=== PATIENT | female | born 1955 | race Caucasian/White ===

== ENCOUNTER 2017-06-05 10:52 | Outpatient (CLI) | payer MEDICAID ==
[2017-06-05 17:51] LABS: BUN - BLOOD UREA NITROGEN 17 mg/dL (6-20); CALCIUM 9.5 mg/dL (8.5-10.3); CARBON DIOXIDE - CO2 26 mmol/L (21-32); CHLORIDE 105 mmol/L (101-111); CHOL/HDL RATIO 4.6 (<4.4); CHOLESTEROL 232 mg/dL; CREATININE 0.6 mg/dL (0.4-1.0); GFR - MDRD 102 (>89); GLUCOSE 87 mg/dL (70-100); HDL CHOLESTEROL 50 mg/dL; LDL/HDL RATIO 3.2 (<4.4); POTASSIUM 4.1 mmol/L (3.5-5.0); SODIUM 139 mmol/L (135-145); TRIGLYCERIDES 103 mg/dL; VLDL CHOLESTEROL 21 mg/dL
== END 2017-06-05 10:53 | disposition home or self-care (01) ==
LOC: LAB.F 10:52
PROVIDERS: ATTEND Internal Medicine
DX: E78.01 Familial hypercholesterolemia (principal); E87.6 Hypokalemia; E55.9 Vitamin D deficiency, unspecified
CPT/HCPCS: 36415; 80048; 80061; 82306

== ENCOUNTER 2017-06-18 11:10 | Outpatient (CLI) | payer MEDICAID | END 2017-06-18 11:11 | disposition home or self-care (01) | LOC: SC 11:10 | PROVIDERS: ATTEND Internal Medicine Pulmonary Disease | DX: G47.33 Obstructive sleep apnea (adult) (pediatric) (principal) | CPT/HCPCS: 99203; 99212 ==

== ENCOUNTER 2020-04-13 11:26 | Outpatient (CLI) | payer MEDICAID ==
[2020-04-13 15:25] LABS: BASOPHILS # (AUTO) 0.1 10^3/uL (0.0-0.1); BASOPHILS % (AUTO) 0.8 %; EOSINOPHILS # (AUTO) 0.1 10^3/uL (0.0-0.7); EOSINOPHILS % (AUTO) 1.8 %; HGB - HEMOGLOBIN 13.5 g/dL (12.0-16.0); LYMPHOCYTES # (AUTO) 1.9 10^3/uL (1.5-3.5); LYMPHOCYTES % (AUTO) 30.9 %; MEAN CORPUSCULAR HEMOGLOBIN 30.9 pg (27.0-31.0); MEAN CORPUSCULAR HGB CONC 32.5 g/dL (32.0-36.0); MEAN CORPUSCULAR VOLUME 95.2 fL (81.0-99.0); MEAN PLATELET VOLUME 11.5 fL (7.9-10.8); MONOCYTES # (AUTO) 0.6 10^3/uL (0.0-1.0); MONOCYTES % (AUTO) 9.2 %; NEUTROPHILS # (AUTO) 3.5 10^3/uL (1.5-6.6); NEUTROPHILS % (AUTO) 57.1 %; PLT - PLATELET COUNT 271 10^3/uL (130-450); RED BLOOD COUNT 4.37 10^6/uL (4.20-5.40); RED CELL DISTRIBUTION WIDTH 13.1 % (12.0-15.0); WHITE BLOOD COUNT 6.1 x10^3/uL (4.8-10.8)
[2020-04-13 15:42] LABS: ALBUMIN 4.3 g/dL (3.2-5.5); ALBUMIN/GLOBULIN RATIO 1.5 (1.0-2.2); ALKALINE PHOSPHATASE 63 IU/L (42-121); ALT ALANINE AMINOTRANSFERASE 24 IU/L (10-60); AST ASPARTATE AMINOTRANSFERASE 22 IU/L (10-42); BILIRUBIN,TOTAL 0.8 mg/dL (0.2-1.0); BUN - BLOOD UREA NITROGEN 14 mg/dL (6-20); CALCIUM 9.3 mg/dL (8.5-10.3); CARBON DIOXIDE - CO2 27 mmol/L (21-32); CHLORIDE 103 mmol/L (101-111); CHOL/HDL RATIO 5.9 (<4.4); CHOLESTEROL 303 mg/dL; CREATININE 0.8 mg/dL (0.4-1.0); GLUCOSE 101 mg/dL (70-100); HDL CHOLESTEROL 51 mg/dL; LDL CHOLESTEROL,CALCULATED 223 mg/dL; LDL/HDL RATIO 4.4 (<4.4); SODIUM 137 mmol/L (135-145); TOTAL PROTEIN 7.1 g/dL (6.7-8.2); VLDL CHOLESTEROL 29 mg/dL
== END 2020-04-13 11:27 | disposition home or self-care (01) ==
LOC: LAB.S 11:26
PROVIDERS: ATTEND Family Medicine
DX: E78.5 Hyperlipidemia, unspecified (principal); G43.909 Migraine, unspecified, not intractable, without status migrainosus; E55.9 Vitamin D deficiency, unspecified
CPT/HCPCS: 36415; 80053; 80061; 82306; 83721; 85025

== ENCOUNTER 2023-01-04 10:34 | Outpatient (CLI) | payer MEDICARE, MEDICAID ==
[2023-01-04 14:59] LABS: BASOPHILS # (AUTO) 0.1 10^3/uL (0.0-0.1); BASOPHILS % (AUTO) 1.1 %; EOSINOPHILS # (AUTO) 0.1 10^3/uL (0.0-0.7); EOSINOPHILS % (AUTO) 1.1 %; HCT - HEMATOCRIT 39.7 % (37.0-47.0); HGB - HEMOGLOBIN 12.9 g/dL (12.0-16.0); LYMPHOCYTES # (AUTO) 1.7 10^3/uL (1.5-3.5); LYMPHOCYTES % (AUTO) 36.3 %; MEAN CORPUSCULAR HGB CONC 32.5 g/dL (32.0-36.0); MEAN CORPUSCULAR VOLUME 95.4 fL (81.0-99.0); MEAN PLATELET VOLUME 11.3 fL (7.9-10.8); MONOCYTES # (AUTO) 0.5 10^3/uL (0.0-1.0); MONOCYTES % (AUTO) 9.8 %; NEUTROPHILS # (AUTO) 2.4 10^3/uL (1.5-6.6); NEUTROPHILS % (AUTO) 51.5 %; PLT - PLATELET COUNT 262 10^3/uL (130-450); RED BLOOD COUNT 4.16 10^6/uL (4.20-5.40); RED CELL DISTRIBUTION WIDTH 12.4 % (12.0-15.0); WHITE BLOOD COUNT 4.6 x10^3/uL (4.8-10.8)
[2023-01-04 15:41] LABS: THYROID STIMULATING HORMONE 0.88 uIU/mL (0.34-5.60)
[2023-01-04 16:08] LABS: ALBUMIN 4.1 g/dL (3.2-5.5); ALBUMIN/GLOBULIN RATIO 1.6 (1.0-2.2); BILIRUBIN,TOTAL 0.6 mg/dL (0.2-1.0); CALCIUM 9.2 mg/dL (8.5-10.3); CREATININE 0.6 mg/dL (0.4-1.0); POTASSIUM 4.2 mmol/L (3.5-5.0); TOTAL PROTEIN 6.6 g/dL (6.7-8.2)
[2023-01-04 16:12] LABS: CHOL/HDL RATIO 3.9 (<4.4); CHOLESTEROL 235 mg/dL; HDL CHOLESTEROL 61 mg/dL; LDL CHOLESTEROL,CALCULATED 163 mg/dL; LDL/HDL RATIO 2.7 (<4.4); TRIGLYCERIDES 55 mg/dL; VLDL CHOLESTEROL 11 mg/dL
== END 2023-01-04 10:35 | disposition home or self-care (01) ==
LOC: LAB.S 10:34
PROVIDERS: ATTEND Registered Nurse
DX: E78.5 Hyperlipidemia, unspecified (principal); Z13.9 Encounter for screening, unspecified; E55.9 Vitamin D deficiency, unspecified
CPT/HCPCS: 36415; 80053; 80061; 82306; 83721; 84443; 85025

== ENCOUNTER 2023-03-02 18:36 | Emergency (ER) | payer MEDICARE, MEDICAID ==
[2023-03-02 18:43] VITALS: BP 148/73
--- NOTE | 2023-03-02 19:00 | ED Physician Documentation ---
History of Present Illness - Stated complaint Stated Complaint: R ARM INJ - Chief complaint Chief Complaint: Trauma Ext - History obtained from History obtained from: Patient - History of Present Illness Timing: Today Pain level max: 5 Pain level now: 5 - Additonal information Additional information: 67-year-old female was walking on a trail earlier today when she tripped and fell injuring her right wrist. She does not believe she struck her head. No headache. No loss of consciousness. No neck or back pain. Not on blood thinners. Worse with movement, better with rest. No numbness or tingling. No deformity. This occurred several hours prior to arrival. Patient is right- handed. 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 - Present Medications Home Medications: Ambulatory Orders Medication Instructions Recorded Confirmed SUMAtriptan succinate [Sumatriptan 100 mg PO DAILY PRN 07/01/14 03/02/23 Succinate] HYDROcod/ACETAM 5/325 [Lolita 5/325] 1 - 2 ea PO Q6H PRN #10 tablet 03/02/23 - Allergies Allergies/Adverse Reactions: Allergies Allergy/AdvReac Type Severity Reaction Status Date / Time No Known Drug Allergies Allergy Verified 03/02/23 18:43 PD ED PE NORMAL - Vitals Vital signs reviewed: Yes - General General: Alert and oriented X 3, No acute distress - HEENT HEENT: Atraumatic, PERRL, EOMI, Moist mucous membranes - Neck Neck: Supple, no meningeal sign, No bony TTP - Cardiac Cardiac: RRR, Strong equal pulses - Respiratory Respiratory: No respiratory distress, Clear bilaterally - Back Back: No spinal TTP - Derm Derm: Warm and dry - Extremities Extremities: Other (R UE - R wrist - TTP over the distal radius. no swelling. no deformity. Neurovascular intact. Otherwise normal examination of the entire right arm. No snuffbox tenderness.) - Neuro Neuro: Alert and oriented X 3 - Psych Psych: Normal mood, Normal affect Results - Vitals Vitals: Vital Signs - 24 hr 03/02/23 18:39 Temperature 37.0 C Heart Rate 75 Respiratory 15 Rate Blood Pressure 148/73 H O2 Saturation 98 Oxygen O2 Source Room air - Rads (name of study) R wrist xray Relevant Findings:: Final report received, See rad report PD Medical Decision Making - ED course Complexity details: reviewed results, re-evaluated patient, considered differential, d/w patient, d/w family ED course: 67-year-old female status post ground-level fall injuring the right wrist. No acute findings on x-ray. Placed in a Velcro splint for comfort. Neurovascular intact. No other acute injuries. Recommend she follow-up with her PCP in 1 week for recheck, if still having pain would consider repeat x-rays for potential occult fracture. We will prescribe pain medication for home as well. Patient counseled regarding signs and symptoms for which I believe and urgent re-evaluation would be necessary. Patient with good understanding of and agreement to plan and is comfortable going home at this time This document was made in part using voice recognition software. While efforts are made to proofread this document, sound alike and grammatical errors may occur. Departure - Departure Disposition: Home, Self Care Clinical Impression: Right wrist sprain Qualifiers: Encounter type: initial encounter Qualified Code(s): S63.501A - Unspecified sprain of right wrist, initial encounter Condition: Good Instructions: ED Sprain Wrist Follow-Up: Yamileth Hernandez ARNP [Primary Care Provider] - Within 1 week Prescriptions: HYDROcod/ACETAM 5/325 [Lolita 5/325] 1 - 2 ea PO Q6H PRN #10 tablet PRN Reason: Pain Comments: There are no fractures on your x-ray today. You were placed in a Velcro splint for comfort. You can use this as needed. I would recommend sleeping in the brace as this will help to limit movement. You will likely want to wear the brace for at least the next 2 days. If you are still having pain in 1 week, you should follow-up with your doctor for repeat x-rays. Your prescriptions were sent to [facility] in [place]. Please return if you worsen I am prescribing a short course of narcotic pain medication for you. These are potentially dangerous and addictive medications that should be used carefully. These medications may constipate you. Take an dbwb-wyq-timiysq stool softener (docusate) twice daily with plenty of water while taking these medications. If you go 24 hours without a bowel movement, take sums-jql-wjzkssi miralax, per package instructions. Do not drink or drive while taking these medications. If you received narcotic or sedating medications while in the emergency department, do not drive for 24 hours. Store this medication in a safe, secure place and out of reach of children. It is a violation of federal law to give or sell this medication to another person or to use in a manner other than prescribed. The ED will not refill narcotic prescriptions, including prescriptions lost or stolen. To dispose of unwanted medications: 1. [facility] at [address] in [place] has a medication drop box. They accept prescription medications (in pill form) Saturday through Saturday 9:00 a.m. to 5:00 p.m. 2. The [facility] [employer] accepts prescription medications (in pill form only) for disposal year round. Call for more information. 3. Contact the [facility] for the next [facility] sponsored prescription drug collection event. , [phone], or [phone]; Forms: PCP List Discharge Date/Time: 03/02/23 20:04
--- NOTE | 2023-03-02 19:35 | XRAY Report ---
PROCEDURE: Wrist 4 View RT INDICATIONS: fall, wrist pain TECHNIQUE: 4 views of the wrist were acquired. COMPARISON: None. FINDINGS: Bones: No acute fractures or dislocations. No suspicious bony lesions. Generalized osteopenia. No s caphoid fracture is seen on navicular view. Soft tissues: No suspicious soft tissue calcifications or masses. IMPRESSION: No acute osseous abnormality. If there is clinical concern or persistent symptoms, additional imaging such as repeat radiographs or advanced imaging (e.g. CT, MRI) may be helpful for further evaluation. Reviewed by: Jeovanny Khan MD on 03/02/2023 7:34 PM PDT Approved by: Jeovanny Khan MD on 03/02/2023 7:34 PM PDT Station ID: [id number]
[2023-03-02] MEDS ORDERED: HYDROcod/ACETAM 5/325 MG TABLET PO STA (19:45)
== END 2023-03-02 20:04 | disposition home or self-care (01) ==
LOC: ED 18:36
DX: S63.501A Unspecified sprain of right wrist, initial encounter (principal); W01.0XXA Fall on same level from slipping, tripping and stumbling without subsequent striking against object, initial encounter; Y93.01 Activity, walking, marching and hiking; Y92.89 Other specified places as the place of occurrence of the external cause
CPT/HCPCS: 73110; 99283; A9270

== ENCOUNTER 2023-03-11 08:00 | Outpatient (CLI) | payer MEDICARE, MEDICAID ==
--- NOTE | 2023-03-12 14:18 | XRAY Report ---
PROCEDURE: Wrist 4 View RT INDICATIONS: SPRAIN OF RIGHT WRIST TECHNIQUE: 4 views of the wrist were acquired. COMPARISON: Right wrist radiographs 03/02/2023 FINDINGS: Bones: Cortical angulation present at the distal radial metaphysis with possible periosteal reaction for example on the oblique view. Soft tissues: No suspicious soft tissue calcifications . Possible anterior bowing pronator fat pad. IMPRESSION: Possible healing minimally displaced distal radius fracture. If clinically indicated, follow-up radio graphs and/or CT or MRI may be helpful for further evaluation. Reviewed by: Jeovanny Lopez MD on 03/12/2023 2:17 PM PDT Approved by: Jeovanny Lopez MD on 03/12/2023 2:17 PM PDT Station ID: [id number]
== END 2023-03-11 23:59 | disposition home or self-care (01) ==
LOC: DI.S 08:00
PROVIDERS: ATTEND Physician Assistant Medical
DX: S63.8X1D Sprain of other part of right wrist and hand, subsequent encounter (principal)

== ENCOUNTER 2023-04-18 08:00 | Outpatient (CLI) | payer MEDICARE ==
--- NOTE | 2023-04-18 11:55 | XRAY Report ---
PROCEDURE: Wrist 3 View RT INDICATIONS: RIGHT WRIST FRACTURE TECHNIQUE: 3 views of the wrist were acquired. COMPARISON: 03/11/2023 FINDINGS: Bones: Increasing linear sclerosis across the distal radial metaphysis reflects additional healing. Radiocarpal joint space narrowing Soft tissues: No suspicious soft tissue calcifications or masses. IMPRESSION: Healing distal radial fracture Reviewed by: Shadi Khalil MD on 04/18/2023 10:54 AM JENNI Approved by: Shadi Khalil MD on 04/18/2023 10:54 AM AKMIKEL Station ID: [id number]
== END 2023-04-18 23:59 | disposition home or self-care (01) ==
LOC: DI.WOS 08:00
PROVIDERS: ATTEND Physician Assistant Surgical
DX: S52.501D Unspecified fracture of the lower end of right radius, subsequent encounter for closed fracture with routine healing (principal)

== ENCOUNTER 2023-09-23 14:24 | Outpatient (CLI) | payer MEDICARE, BC ==
[2023-09-23 19:58] LABS: ALBUMIN 4.5 g/dL (3.2-5.5); BILIRUBIN,TOTAL 0.5 mg/dL (0.2-1.0); CALCIUM 9.7 mg/dL (8.5-10.3); CREATININE 0.7 mg/dL (0.6-1.3); POTASSIUM 4.1 mmol/L (3.5-4.5); TOTAL PROTEIN 6.8 g/dL (6.4-8.9)
[2023-09-23 20:09] LABS: THYROID STIMULATING HORMONE 1.5 uIU/mL (0.34-5.60)
== END 2023-09-23 14:25 | disposition home or self-care (01) ==
LOC: LAB.S 14:24
PROVIDERS: ATTEND Registered Nurse
DX: R53.83 Other fatigue (principal); R41.89 Other symptoms and signs involving cognitive functions and awareness; R63.5 Abnormal weight gain; R63.2 Polyphagia; R22.1 Localized swelling, mass and lump, neck
CPT/HCPCS: 36415; 80053; 84439; 84443; 84481; 85025; 86800

== ENCOUNTER 2023-09-30 13:12 | Outpatient (CLI) | payer MEDICARE, BC ==
[2023-09-30 20:04] LABS: BASOPHILS # (AUTO) 0.1 10^3/uL (0.0-0.1); BASOPHILS % (AUTO) 0.9 %; EOSINOPHILS # (AUTO) 0.1 10^3/uL (0.0-0.7); EOSINOPHILS % (AUTO) 0.8 %; HCT - HEMATOCRIT 41.1 % (37.0-47.0); HGB - HEMOGLOBIN 13.2 g/dL (12.0-16.0); LYMPHOCYTES # (AUTO) 1.8 10^3/uL (1.5-3.5); LYMPHOCYTES % (AUTO) 27.1 %; MEAN CORPUSCULAR HEMOGLOBIN 30.7 pg (27.0-31.0); MEAN CORPUSCULAR HGB CONC 32.1 g/dL (32.0-36.0); MEAN CORPUSCULAR VOLUME 95.6 fL (81.0-99.0); MEAN PLATELET VOLUME 10.9 fL (7.9-10.8); MONOCYTES # (AUTO) 0.5 10^3/uL (0.0-1.0); MONOCYTES % (AUTO) 8.2 %; NEUTROPHILS # (AUTO) 4.1 10^3/uL (1.5-6.6); NEUTROPHILS % (AUTO) 62.8 %; PLT - PLATELET COUNT 276 10^3/uL (130-450); RED CELL DISTRIBUTION WIDTH 12.7 % (12.0-15.0); WHITE BLOOD COUNT 6.6 x10^3/uL (4.8-10.8)
== END 2023-09-30 13:13 | disposition home or self-care (01) ==
LOC: LAB.S 13:12
PROVIDERS: ATTEND Registered Nurse
DX: R41.89 Other symptoms and signs involving cognitive functions and awareness (principal); R63.5 Abnormal weight gain; R63.2 Polyphagia; R22.1 Localized swelling, mass and lump, neck; R53.83 Other fatigue
CPT/HCPCS: 36415; 85025; 86800

== ENCOUNTER 2023-10-04 14:40 | Outpatient (CLI) | payer MEDICARE, BC ==
--- NOTE | 2023-10-04 16:38 | Ultrasound Report ---
PROCEDURE: Soft Tissue Head or Neck INDICATIONS: SWELLING IN NECK TECHNIQUE: Real-time scanning was performed of the thyroid gland, with image documentation. COMPARISON: None FINDINGS: Right: Thyroid lobe measures 4.8 x 1.5 x 1.9 cm, and is homogeneous in echotexture. Left: Thyroid lobe measures 4.4 x 1.1 x 1.3 cm, and is homogenous in echotexture. Isthmus: 0.11 cm thick. Nodule number: One Location: Right, mid Size: 2.5 x 1.6 x 1.8 cm. Composition: Solid. Echogenicity: Isoechoic. Shape: wider than tall (0 points). Margins: Smooth (0 points). Echogenic foci: None (0 points). Total points: 3 ACR TI-RADS category: 3 Nodule number: Two Location: Left thyroid, mid Size: Size cm. Composition: 0.5 x 0.3 x 0.4 cm. Echogenicity: Predominantly solid. Shape: wider than tall (0 points). Margins: Smooth (0 points). Echogenic foci: None (0 points). Total points: 2 ACR TI-RADS category: 2 IMPRESSION: Thyroid nodules as noted above. Recommend follow-up ultrasound in one year ACR TI-RADS definitions and recommendations: TI-RADS 1 (benign): 0 points. FNA not needed. TI-RADS 2 (not suspicious): 2 points. FNA not needed. TI-RADS 3 (mildly suspicious): 3 points. "FNA if 2.5 cm or larger, follow up if 1.5 cm or larger (at 1, 3, and 5 years). TI-RADS 4 (moderately suspicious): 4-6 points. "FNA if 1.5 cm or larger, follow up if 1 cm or larger (at 1, 2, 3, and 5 years). TI-RADS 5 (highly suspicious): 7 points or more. "FNA if 1 cm or larger, follow up if 0.5 cm or larger (every year for 5 years). Reviewed by: Preet Schwartz MD on 10/04/2023 4:37 PM PST Approved by: Preet Schwartz MD on 10/04/2023 4:37 PM PST Station ID: [id number]
== END 2023-10-04 14:41 | disposition home or self-care (01) ==
LOC: DI 14:40
PROVIDERS: ATTEND Registered Nurse
DX: E04.2 Nontoxic multinodular goiter (principal)

== ENCOUNTER 2023-12-03 12:40 | Outpatient (CLI) | payer MEDICARE, BC ==
[~2023-12-03 12:40] MED LIST: LIDOCAINE-MPF 1% 5 ML VIAL ONE
[2023-12-03] MEDS: LIDOCAINE-MPF 1% 5 ML VIAL TD ONE (14:08)
--- NOTE | 2023-12-04 12:59 | Ultrasound Report ---
PROCEDURE: FNA Bx w/US Gdn 1st Les INDICATIONS: THYROID NODULE TECHNIQUE: The indications, alternatives, benefits, risks, and complications of the procedure were explained to the patient. Written informed consent was obtained and placed in the chart. The area of interest wa s examined sonographically and a site was chosen for ultrasound guided percutaneous sampling. The sk in was prepared and draped in the usual fashion, and anesthetized with 1% lidocaine infiltrated from the skin down to the lesion. Multiple passes were then performed, with contents emptied into an appr [facility] pathology specimen container. A bandage was applied to the area of access at completion of t he study. COMPARISON: 10/04/2023 FINDINGS: Location(s) of lesion(s) sampled: Right thyroid [place]: 25 gauge hypodermic needles. Number of passes: 6 Medications: 1% lidocaine for local anaesthesia. Complications: None. IMPRESSION: Successful ultrasound-guided right thyroid nodule fine needle aspiration, with cytology results pendi ng. Reviewed by: Dusty Wynne MD on 12/04/2023 12:58 PM PDT Approved by: Dusty Wynne MD on 12/04/2023 12:58 PM PDT Station ID: [id number]
== END 2023-12-03 12:41 | disposition home or self-care (01) ==
LOC: DI 12:40
PROVIDERS: ATTEND Registered Nurse
DX: E04.1 Nontoxic single thyroid nodule (principal)
CPT/HCPCS: 10005

== ENCOUNTER 2024-01-16 15:05 | Outpatient (CLI) | payer MEDICARE, BC ==
--- NOTE | 2024-01-16 18:42 | DEXA Report ---
PROCEDURE: Dexa Spine and/or Hip INDICATIONS: POST MENOPAUSAL TECHNIQUE: Dual energy x-ray absorptiometry (DXA) was performed on a [employer] System. Regions measur ed are the AP Spine, femoral neck, and if needed forearm. COMPARISON: 6 03/25/2014 FINDINGS: Lumbar Spine: Bone Mineral Density: 1.091 g/cm/cm,T score: -0.7, unchanged. Left Femoral Neck: Bone Mineral Density: 0.697 g/cm/cm, T score: -2.5 compared to -2.1. Left Hip: Bone Mineral Density: 0.762 g/cm/cm,T score: -2.0, compared to -1.7. (T score greater or equal to -1.0: NORMAL) (T score from -1.1 to -2.4: OSTEOPENIA) (T score less than or equal to -2.5 to: OSTEOPOROSIS) Impression: By WHO criteria, this patient has osteoporosis in the left femoral neck demonstrating continued bone mineral density loss compared to prior exam. There is moderate osteopenia worse in the left hip alyse red to prior exam. Patients with diagnosis of osteoporosis or osteopenia should have regular bone mineral density assess ment. For those eligible for Medicare, routine testing is allowed once every 2 years. Testing frequ ency can be increased for patients who have rapidly progressing disease or for those who are receivin g medical therapy to restore bone mass. Reviewed by: Kylah Wilks MD on 01/16/2024 6:41 PM PDT Approved by: Kylah Wilks MD on 01/16/2024 6:41 PM PDT Station ID: [id number]
== END 2024-01-16 15:06 | disposition home or self-care (01) ==
LOC: DI 15:05
PROVIDERS: ATTEND Registered Nurse
DX: M81.0 Age-related osteoporosis without current pathological fracture (principal); Z78.0 Asymptomatic menopausal state

== ENCOUNTER 2024-02-03 13:02 | Outpatient (CLI) | payer MEDICARE, BC ==
--- NOTE | 2024-02-04 08:42 | Mammography Report ---
BILATERAL DIGITAL SCREENING MAMMOGRAM 3D/2D: 02/03/2024 CLINICAL: Routine screening. Comparison is made to exams dated: 03/25/2014 mammogram, 03/26/2013 mammogram, and 02/15/2012 mammogram - [facility]. Both breasts are heterogeneously dense, which may obscure small masses (category c / 51-75% glandular tissue). No significant masses, calcifications, or other findings are seen in either breast. There has been no significant interval change. IMPRESSION: NEGATIVE There is no mammographic evidence of malignancy. A 1 year screening mammogram is recommended. Based on the Tyrer Cuzick model (a risk assessment model) the patient's lifetime risk is 9.3% and her 10 year risk is 4.9%. According to the ACR, ACS, and NCCN guidelines, an annual breast MRI exam daquan g with mammogram is recommended if the patient's lifetime risk is 20% or greater. This exam was interpreted at Station ID: [id number]. NOTE: For mammograms, a report in lay terms will be sent to the patient. Approximately 15% of breast malignancies will not be visualized mammographically. In the management of a palpable breast mass, a negative mammogram must not discourage biopsy of a clinically suspicious lesion. Electronically Signed By: Dusty hebert/khari:02/03/2024 13:39:18 letter sent: No_Letter ACR BI-RADS Category 1: Negative 3341F PARENCHYMAL PATTERN: (D) - The breast(s) demonstrate(s) heterogeneously dense fibroglandular ruben galvan. BI-RADS CATEGORY: (1) - 1 RECOMMENDATION: (ANNUAL) - Recommend routine annual screening mammography. [id number] 1 year screening LATERALITY: (B)
== END 2024-02-03 13:03 | disposition home or self-care (01) ==
LOC: DI.S 13:02
PROVIDERS: ATTEND Registered Nurse
DX: Z12.31 Encounter for screening mammogram for malignant neoplasm of breast (principal); R92.333 Mammographic heterogeneous density, bilateral breasts